=== PATIENT | male | born 1935 | race African-American/Black ===

== ENCOUNTER 2019-10-25 23:51 | Emergency (ER) | payer MEDICARE ==
[~2019-10-25 23:51] MED LIST: ASPIRIN81 MG PO; CARVEDILOL25 MG PO; CITALOPRAM20 M1 PO; LOSARTAN POTASS25 MG PO; TAMSULOSIN HCL0.4 MG PO; THEO-24200 MG PO; TRAZODONE50 MG PO; VITMIN PO
[2019-10-26] MEDS ORDERED: ALBUTEROL108 MCG/AC IN (00:16)
[2019-10-26 00:37] LABS: HEMATOCRIT 40.5 % (39.0-50.0); HEMOGLOBIN 12.9 g/dl (14.0-18.0); IMMATURE GRANULOCYTES 0.2 % (0.0-5.0); MEAN CELL VOLUME 86.9 fL CALC (80.0-100.0); MEAN CORPUSCULAR HGB 27.7 pG CALC (26.0-32.0); MEAN CORPUSCULAR HGB CONC 31.9 g/dL CAL (32.0-36.0); NEUT# 3.43 thou/uL (1.82-7.42); RED BLOOD COUNT 4.66 mill/uL (4.70-6.10); RED CELL DISTRI WIDTH 13.3 % (11.5-15.5)
[2019-10-26 00:52] LABS: ALBUMIN 3.8 g/dL (3.2-5.0); BILIRUBIN, TOTAL 0.4 mg/dL (0.0-1.4); CREATININE 1.8 mg/dL (0.7-1.3); POTASSIUM 4.6 mmol/l (3.5-5.1); TOTAL PROTEIN 7.4 g/dL (6.3-8.2)
[2019-10-26] MEDS ORDERED: COLCHICINE0.6 M2 PO (01:51)
[2019-10-26] MEDS ORDERED: ALLOPURINOL100 MG PO (01:51)
[2019-10-26] MEDS ORDERED: PREDNISONE50 MG PO (01:51)
[2019-10-26 02:50] VITALS: BP 186/88
== END 2019-10-26 02:50 | disposition home or self-care (01) ==
LOC: ED 23:51
PROVIDERS: Family Medicine
DX: M10.071 Idiopathic gout, right ankle and foot (principal); I10 Essential (primary) hypertension

== ENCOUNTER 2021-12-28 11:20 | Inpatient (IN) | payer MEDICARE ==
[2021-12-28] VITALS (43 sets, daily range): BP systolic 70–174; BP diastolic 35–89
[~2021-12-28] VITALS: Ht 162.6 cm; Wt 52.4 kg
[~2021-12-28 11:20] MED LIST changes: +ALBUTEROL108 MCG/AC IN; +ALLOPURINOL100 MG PO; +COLCHICINE0.6 M2 PO; +PREDNISONE50 MG PO; -THEO-24200 MG PO; +THEO-24300 MG PO; +VITAMIN D350000 UNIT PO; -VITMIN PO
--- NOTE | 2021-12-28 11:30 | NUR ---
PT TO ROOM VIA EMS
[2021-12-28 12:17] LABS: HEMATOCRIT 38.5 % (39.0-50.0); HEMOGLOBIN 12.7 g/dl (14.0-18.0); IMMATURE GRANULOCYTES 0.2 % (0.0-5.0); MEAN CELL VOLUME 84.2 fL CALC (80.0-100.0); MEAN CORPUSCULAR HGB 27.8 pG CALC (26.0-32.0); NEUT# 4.59 thou/uL (1.82-7.42); RED BLOOD COUNT 4.57 mill/uL (4.70-6.10); RED CELL DISTRI WIDTH 14.3 % (11.5-15.5)
[2021-12-28 12:19] LABS: TOTAL PROTEIN 6.8 g/dL (6.3-8.2)
[2021-12-28 12:22] LABS: ALBUMIN 3.3 g/dL (3.2-5.0); BILIRUBIN, TOTAL 1.4 mg/dL (0.0-1.4); CREATININE 2.3 mg/dL (0.7-1.3)
--- NOTE | 2021-12-28 12:30 | NUR ---
PT RESTING ON STRETCHER; BREATHING TX IN PROCESS; MONITORING DEVICES IN PLACE; ADVISED OF CONTINUED WAIT TIME
--- NOTE | 2021-12-28 13:30 | NUR ---
PT RESTING ON STRETCHER; MONITORING DEVICES IN PLACE; CALL LIGHT WITHIN REACH
--- NOTE | 2021-12-28 14:00 | NUR ---
Reassessment of patient completed. No distress noted.
--- NOTE | 2021-12-28 15:00 | NUR ---
PT ARRIVED TO MS VIA STRETCHER @1500, ACCOMPANIED BY ER, NURSE. BED SIDE REPORT RECEIVED BY MEREDITH CHARLES. PT A&O X3. EVEN AND LABORED RESPIRATIONS: SOB ON EXERTION. COARSE THROUGHTOUT. TELEMETRY IN PLACE. IV SITE HEALTHY AND PATENT INFUSING FLUIDS PER ORDER. ACTIVE BOWEL SOUNDS X4 QUADRATS. PT ORIENTED TO ROOM AND THE USE OF CALL LIGHT. SAFETY PRECAUTIONS IN PLACE WITH CALL LIGHT IN REACH.
--- NOTE | 2021-12-28 15:09 | NUR ---
Admission Note Report Given to: CASINO FLOOR PERSON Transported by: Wheelchair X Stretcher Transported with: X Nurse Transporter X Patent IV X O2 X Cement Or Concrete Finishing Supervisor Location: ICU X MS2 PREPORT GIVEN TO CASINO FLOOR PERSON. PATIENT ON 3LPM O2 WITH FLUIDS RUNNING. PATIENNT WEIGHED ON TRANSFER.
[2021-12-28] MEDS ORDERED: TRAZODONE50 MG PO (16:31)
[2021-12-28] MEDS ORDERED: ACETAMINOPHEN650 M1 PO (16:34)
[2021-12-28] MEDS ORDERED: FLEXERIL5 M1 PO (16:34)
--- NOTE | 2021-12-28 16:34 | NUR ---
PT C/O SOB. GENARO RAMIREZ AT BEDSIDE ASSESING EARLY LEARNING TEACHER; ORDERED BREATHING TREATMENT. RESPIRATORY THERAPIST ADMINISTERED BREATHING TX. CONTINUOS PULSE OXYMETER READER PLACED BY GENARO ORDERS. O2 SAT 98% AFTER BREATHING TREATMENT. SAFETY PRECAUTIONS IN PLACE WITH CALL LIGHT IN REACH.
[2021-12-28] MEDS ORDERED: PROVENTIL0.083 % IN (16:37)
--- NOTE | 2021-12-28 16:56 | NUR ---
CRICTIAL LA OF 3.6 RECIEVED FROM Lucy GONZALEZ NP INFORMED.
--- NOTE | 2021-12-28 17:30 | NUR ---
PT TRANSFER TO ICU PER ORDER OF GENARO RAMIREZ. PT TRANSPORTED VIA STRETCHER, PORTABLE O2 @ 3L VIA NASAL CANNULA IN PLACE. REPORT GIVENT TO MEREDITH LOMELI.
--- NOTE | 2021-12-28 18:06 | NUR ---
Patient arrived to unit from med/surg at approximately 1815, in hospital bed, accompanied by primary nurse. Patient awake and alert, in moderate respiratory distress, respiratory called as patient arrived to unit and patient placed on bipap. Patient placed in clean hospital gown, cleaned of bowel incontinence and de catheter inserted.
[2021-12-28 19:32] LABS: URINE BILIRUBIN - DIPSTICK NEGATIVE (NEGATIVE); URINE BLOOD DIPSTICK NEGATIVE (NEGATIVE); URINE COLOR DK. YELLOW; URINE GLUCOSE - DIPSTICK NEGATIVE (NEGATIVE); URINE KETONE NEGATIVE (NEGATIVE); URINE LEUK ESTERASE NEGATIVE (NEGATIVE); URINE NITRITE - DIPSTICK NEGATIVE (Negative); URINE PH 5.5 (4.5-8.0); URINE PROTEIN - DIPSTICK 100 mg/dL (NEG-TRACE); URINE RBC 0-2 RBC/hpf (0-5); URINE SPECIFIC GRAVITY >=1.030; URINE WBC 0-2 WBC/hpf (0-5)
--- NOTE | 2021-12-28 20:22 | NUR ---
DR. VICK NOTIFIED R/T LACTIC ACID OF 5.0. ORDERS GIVEN TO BOLUS 1 L NS. MAINTENANCE FLUIDS NS @100 ML/HR TO START FOLLOWING BOLUS.
--- NOTE | 2021-12-28 20:30 | NUR ---
PORTABLE ABDOMINAL X-RAY BEING DONE AT THIS TIME.
[2021-12-29] VITALS (18 sets, daily range): BP systolic 46–204; BP diastolic 27–91
--- NOTE | 2021-12-29 00:17 | NUR ---
DR. VICK CONTACTED R/T PT VOMITING. INSTRUCTED THIS NURSE TO REMOVE BIPAP, GIVE IV PROTONIX PUSH, AND ZOFRAN 4 MG PUSH.
--- NOTE | 2021-12-29 00:27 | NUR ---
PT O2 SATS 83-85% ON 4L N/C. 15L NON-REBREATHER APPLIED, O2 SATS IMPROVED TO 93%.
--- NOTE | 2021-12-29 01:06 | NUR ---
Bipap placed on standby at [address] Stover due to vomiting risk of aspiration.
--- NOTE | 2021-12-29 03:00 | NUR ---
VITAL SIGNS STABLE AT THIS TIME. PT REMAINS ON NON-REBREATHER AT 15 L. PT DOES NOT APPEAR TO BE IN DISTRESS AT THIS TIME. PT BATHED AT THIS TIME BY DATA CENTER ARCHITECT AND THIS NURSE.
--- NOTE | 2021-12-29 03:30 | NUR ---
THIS NURSE CALLED RT AT 0328 R/T PT BEING MINIMALLY RESPONSIVE AND HAVING GASPING BREATHS. RT ATTEMPTED TO GET ABG, WAS UNSUCCESSFUL. WIRE PULLER CALLED AT 0333 R/T PT NEEDING TO BE INTUBATED. ER PHYSICIAN NOTIFIED TO HELP W/ INTUBATION. PT BECAME APENIC AND PULSELESS. LAMBERT DAWSON CALLED AT 0337 AND COMPRESSIONS STARTED. SEE CODE SHEET FOR OTHER DETAILS.
--- NOTE | 2021-12-29 04:30 | NUR ---
PT BECOMING BRADYCARDIC AND UNABLE TO PALPATE A PULSE. CODE SAMIR CALLED AT 0411 AND COMPRESSIONS STARTED R/T ASYSTOLE. SEE CODE SHEET FOR DETAILS.
--- NOTE | 2021-12-29 04:32 | NUR ---
ATTEMPTS MADE TO CONTACT FAMILY. BOTH PHONE NUMBERS LISTED IN PATIENT CHART OUT OF SERVICE. SAMPLE SEWER'S OFFICE CALLED AT [phone] TO HELP FIND/NOTIFY FAMILY.
--- NOTE | 2021-12-29 04:35 | NUR ---
DR. VICK CALLED AND NOTIFIED AT 0435 OF PATIENT .
--- NOTE | 2021-12-29 05:41 | NUR ---
'S OFFICE CALLED THE HOSPITAL AT 0523 TO LET US KNOW THAT THE PATIENT'S ADDRESS IS NON-EXISTENT AND THAT THE SIGNIFICANT OTHER'S ADDRESS IS INCORRECT. 'S OFFICE VERIFIED PATIENT'S AND STATES THAT THEY HAVE AN ADDRESS ON FILE THEY WILL TRY.
--- NOTE | 2021-12-29 08:03 | NUR ---
Spoke with officer Ji from [facility] he made contact with the person he was living with and then they would contact the family in [place] and give us a phone call.
--- NOTE | 2021-12-29 08:10 | NUR ---
call placed to recent contact out of patient cell phone; Nica Robbins; admits to being a friend of pt; friend has no family contact information except states in which they reside; Nica provided Sb Kevin # [phone], states pt lives with this person/this person takes care of the patient; no additional information provided at this time in regards to condition;
--- NOTE | 2021-12-29 11:05 | NUR ---
call received from stated "daughter" Ana Laura [facility]; address [address] [id number]; phone # [phone] (facesheet to be updated); daughter questioning if father was ; daughter Ana Laura states she heard this info from niece and sister; information provided in regards to coding/ /TOD; [facility] to be contacted; all belongings to be sent to Home and picking machine operator later by Selma Vega;
--- NOTE | 2021-12-29 11:11 | NUR ---
[facility] called per typewriter assembler; spoke with Gilmar; information provided; awaiting pick-up
--- NOTE | 2021-12-29 11:43 | NUR ---
received call received from Sb Brown; Sb informed that immed family have been reached;
--- NOTE | 2021-12-29 12:41 | NUR ---
[facility] on unit; body released; all belongings sent with Urszula as per daughter Ana Laura's request;
--- NOTE | 2021-12-29 13:03 | NUR ---
call placed to daughter Ana Laura as per request; informed body released; Ana Laura request this production underwriter to notify step-daughter Kimber Willie of patients passing
== END 2021-12-29 04:20 | disposition expired | DRG 871 ==
LOC: ED 11:20 → ED-I 11:43 → ED 13:08 → MS2 13:09 → ICU 17:15
PROVIDERS: Emergency Medicine; ADMIT Internal Medicine; ATTEND Internal Medicine
PROC: 5A09357 Assistance with Respiratory Ventilation, Less than 24 Consecutive Hours, Continuous Positive Airway Pressure (ICD-10-PCS; principal; 2021-12-28)
PROC: 0T9B70Z Drainage of Bladder with Drainage Device, Via Natural or Artificial Opening (ICD-10-PCS; 2021-12-28)
PROC: 0BH17EZ Insertion of Endotracheal Airway into Trachea, Via Natural or Artificial Opening (ICD-10-PCS; 2021-12-29)
PROC: 5A1935Z Respiratory Ventilation, Less than 24 Consecutive Hours (ICD-10-PCS; 2021-12-29)
PROC: 5A12012 Performance of Cardiac Output, Single, Manual (ICD-10-PCS; 2021-12-29)
DX: A41.9 Sepsis, unspecified organism (principal); J18.9 Pneumonia, unspecified organism; J11.00 Influenza due to unidentified influenza virus with unspecified type of pneumonia; J96.01 Acute respiratory failure with hypoxia; J44.1 Chronic obstructive pulmonary disease with (acute) exacerbation; E87.2 Acidosis; J44.0 Chronic obstructive pulmonary disease with (acute) lower respiratory infection; R65.20 Severe sepsis without septic shock; E86.0 Dehydration; I46.9 Cardiac arrest, cause unspecified; I10 Essential (primary) hypertension; M10.9 Gout, unspecified; N40.0 Benign prostatic hyperplasia without lower urinary tract symptoms
CPT/HCPCS: J0692; S0164